=== PATIENT | male | born 1965 | race African-American/Black ===

== ENCOUNTER → 2017-11-27 | Outpatient (CLI) | payer OTHER ==
--- NOTE | 2017-11-27 13:47 | DIAGNOSTIC IMAGING REPORT ---
RIGHT HIP INJECTION UNDER FLUOROSCOPIC GUIDANCE CLINICAL HISTORY: Degenerative joint disease. Steroid injection. PROCEDURE: The risks, benefits, and alternatives to the procedure were discussed with the patient. Written informed consent was obtained. The patient was placed supine on the fluoroscopy table, and a right hip injection was performed under fluoroscopic guidance. The area was prepped and draped in the usual sterile fashion. The skin and soft tissues anesthetized with local 1% lidocaine. The right hip joint was accessed utilizing a 22-gauge needle, and intra-articular positioning was confirmed by injecting a small volume of Optiray 300. The prescribed dosage of 2 cc of 2% lidocaine and 2 cc of Kenalog was then injected into the joint space. The procedure was well tolerated and without immediate complication. The patient left the department in satisfactory condition. FLUOROSCOPY TIME: 8 seconds. IMPRESSION: Successful steroid injection of the right hip under fluoroscopic guidance. Electronically signed by: Wander Sharif M.D. 11/27/2017 1:45 PM Dictated Date/Time: 11/27/2017 1:43 PM
== END | disposition home or self-care (01) ==
LOC: C.RADBC 12:35
PROVIDERS: ATTEND Internal Medicine
DX: M25.50 Pain in unspecified joint (principal)